=== PATIENT | female | born 1940 | race Caucasian/White ===

== ENCOUNTER → 2017-01-12 16:59 | Outpatient (CLI) | payer MEDICARE, BC | END | disposition home or self-care (01) | LOC: D.MAMMO 14:30 | DX: Z85.3 Personal history of malignant neoplasm of breast (principal); Z12.31 Encounter for screening mammogram for malignant neoplasm of breast ==

== ENCOUNTER → 2018-02-04 16:51 | Outpatient (CLI) | payer MEDICARE, BC | END | disposition home or self-care (01) | LOC: D.MAMMO 13:30 | DX: Z12.31 Encounter for screening mammogram for malignant neoplasm of breast (principal) ==

== ENCOUNTER 2018-02-19 08:00 | Outpatient (CLI) | payer MEDICARE, BC | END 2018-02-19 09:00 | disposition home or self-care (01) | LOC: D.MAMMO 08:00 | DX: R92.8 Other abnormal and inconclusive findings on diagnostic imaging of breast (principal) ==

== ENCOUNTER 2019-01-20 06:59 | Day surgery (SDC) | payer MEDICARE, BC ==
[~2019-01-20] VITALS: Ht 165.1 cm; Wt 78.2 kg
[2019-01-20 07:46] LABS: BASOPHILS 0.7 % (0-2); HEMATOCRIT 42.2 % (36.0-48.0); IMMATURE GRANULOCYTES 0.7 % (0-5); LYMPHOCYTES 26.1 % (15-50); MCH 32.6 pg (26.0-34.0); MCHC 33.2 g/dL (31.0-37.0); MCV 98.4 fL (80.0-100.0); MEAN PLATELET VOLUME 9.8 fL (7.4-10.4); MONOCYTES 9.2 % (2-11); NEUTROPHILS 58.3 % (40-80); PLATELET COUNT 277 10x3/uL (130-400); RBC 4.29 10x6/uL (4.00-5.40); RDW 14.1 % (11.5-14.5); WBC 7.6 10x3/uL (4.8-10.8)
[2019-01-20 07:54] VITALS: Ht 165.1 cm; Wt 78.2 kg
[2019-01-20] MEDS ORDERED: PEPCID AC20 MG PO (08:01)
[2019-01-20] MEDS ORDERED: ESTRACE 0.0142.5 GM VG (08:02)
[2019-01-20] MEDS ORDERED: METOPROLOL TART50 MG PO (08:02)
[2019-01-20 08:03] LABS: ANION GAP 10.2 mmol/L (8-16); CALCIUM 8.9 mg/dL (8.5-10.1); CARBON DIOXIDE 30.8 mmol/L (21.0-32.0); CREATININE - SERUM 0.8 mg/dL (0.6-1.3)
[2019-01-20] MEDS ORDERED: COZAAR50 MG PO (08:03)
[2019-01-20] MEDS ORDERED: NORVASC5 MG PO (08:03)
[2019-01-20] MEDS ORDERED: OMEPRAZOLE20 M1 PO (08:04)
[2019-01-20] MEDS ORDERED: TOVIAZ4 MG PO (08:07)
[2019-01-20] MEDS ORDERED: VITAMIN D5000 UNIT PO (08:08)
[2019-01-20] MEDS ORDERED: D-MANNOSE PO (08:08)
[2019-01-20] MEDS ORDERED: KRILL OIL 1,001 EAC1 PO (08:09)
[2019-01-20] MEDS ORDERED: MERIBIN5 MG PO (08:10)
[2019-01-20] MEDS ORDERED: MULTI-DAY VITAM1 TAB PO (08:10)
--- NOTE | 2019-01-20 11:45 | NUR ---
[id number]: ESOPHAGEAL MANOMETRY PERFORMED.
--- NOTE | 2019-01-21 11:36 | OP ---
PATIENT NAME: LESLY SANTOS MEDICAL RECORD: [id number] :41 LOCATION:D.OPS ADMISSION DATE: SURGEON: SERGE PERRY MD DATE OF OPERATION: 01/20/2019 PREOPERATIVE DIAGNOSES: 1. Gastroesophageal reflux disease. 2. Hiatal hernia. 3. Diabetes mellitus. 4. Hypertension. 5. Hypercholesterolemia. POSTOPERATIVE DIAGNOSES: 1. Gastroesophageal reflux disease. 2. Hiatal hernia. 3. Diabetes mellitus. 4. Hypertension. 5. Hypercholesterolemia. PROCEDURE: EGD with biopsy and manometry catheter placement. SURGEON: Serge Perry MD REPORT OF PROCEDURE: An Olympus endoscope was advanced through the mouth and esophagus. As we passed through the GE junction to see, this was at 34 cm from the teeth. Just distal to this, we can see the diaphragm pinch in the top portion of the stomach consistent with a hiatal hernia. The diaphragm was at about 39 cm from the teeth. We were able to pass through this and into the small bowel. The small bowel appeared to be normal with no sign of any inflammatory changes. As we pulled back, a biopsy was taken in the antrum of the stomach. The biopsy was sent off for permanent specimen. As we did retroflex views, we could see the moderate size hiatal hernia and near this there was about a 0.5-1 cm pedunculated mass in the fundus to the body of the stomach. A hot snare was used to transect this and a grasper was used to obtain the specimen. As we pulled back further, we inspected the GE junction and there was noted to be some ulcerations linearly with no signs of any Quinones's esophagus. A biopsy was taken at the edge of these linear ulcerations. At this point, the scope was removed. An esophageal manometry catheter was then inserted through the left naris and advanced with ease. The endoscope was advanced back down through the mouth and esophagus and we could see that this tube was placed down into the gastric lumen past the diaphragmatic hiatus. At this point, the scope was removed and the manometry catheter was left in position for postoperative esophageal manometry. COMPLICATIONS: None. CONDITION: Stable. ANESTHESIA: TIVA. BLOOD LOSS: Minimal. TRANSINT:[id number] Voice Confirmation ID: [id number] DOCUMENT ID: [id number] OPERATIVE REPORT [id number] LESLY SANTOS ESRGE PERRY MD at 1136 CC: [place] CRYSTAL [id number] DICTATION DATE: 01/20/19 1121 DRYING RACK CHANGER: 01/20/19 1138 [facility] 01/20/19 [id number] [place] [address]
== END 2019-01-20 12:20 | disposition home or self-care (01) ==
LOC: D.OPS 06:59
PROVIDERS: ATTEND Surgery
DX: K21.9 Gastro-esophageal reflux disease without esophagitis (principal); K44.9 Diaphragmatic hernia without obstruction or gangrene; E11.9 Type 2 diabetes mellitus without complications; I10 Essential (primary) hypertension; E78.00 Pure hypercholesterolemia, unspecified

== ENCOUNTER 2019-02-10 08:50 | Day surgery (SDC) | payer MEDICARE, BC ==
[2019-02-08 12:50] LABS: BASOPHILS 0.5 % (0-2); EOSINOPHILS 2.6 % (0-7); HEMATOCRIT 43.3 % (36.0-48.0); HEMOGLOBIN 14.5 g/dL (12-16); IMMATURE GRANULOCYTES 0.4 % (0-5); MCH 32.7 pg (26.0-34.0); MCHC 33.5 g/dL (31.0-37.0); MCV 97.7 fL (80.0-100.0); NEUTROPHILS 64.5 % (40-80); PLATELET COUNT 275 10x3/uL (130-400); RBC 4.43 10x6/uL (4.00-5.40); RDW 13.7 % (11.5-14.5); WBC 8.4 10x3/uL (4.8-10.8)
[2019-02-08 12:55] LABS: INR 1.06 (0.85-1.17); PROTIME 13.3 SECONDS (11.6-15.0)
[2019-02-08 13:06] LABS: ANION GAP 12.8 mmol/L (8-16); CALCIUM 9.5 mg/dL (8.5-10.1); CARBON DIOXIDE 28.3 mmol/L (21.0-32.0); CREATININE - SERUM 0.8 mg/dL (0.6-1.3); POTASSIUM - SERUM 4.1 mmol/L (3.5-5.1)
[~2019-02-10] VITALS: Ht 167.6 cm; Wt 78.2 kg
[~2019-02-10 08:50] MED LIST: COZAAR50 MG PO; D-MANNOSE PO; ESTRACE 0.0142.5 GM VG; KRILL OIL 1,001 EAC1 PO; MERIBIN5 MG PO; METOPROLOL TART50 MG PO; MULTI-DAY VITAM1 TAB PO; NORVASC5 MG PO; OMEPRAZOLE20 M1 PO; PEPCID AC20 MG PO; TOVIAZ4 MG PO; VITAMIN D5000 UNIT PO
[2019-02-10 10:33] VITALS: BP 143/61; BMI 28.6
--- NOTE | 2019-02-10 12:20 | NUR ---
PT PLACED ON GEL PAD WITH SLING UNDER BUTTOCKS.
[2019-02-10 14:04] VITALS: BP 129/59
--- NOTE | 2019-02-10 14:06 | NUR ---
PT ARRIVED FROM SURGERY VIA BED. RR EVEN AND UNLABORED. PT IS SLEEPING BUT EASIL AROUSED. DENIES NEEDS OR PAIN AT THIS TIME. FAMILY @ BEDSIDE. IV NOTED TO LEFT HAND. 4L NC. VSS AT THIS TIME. WILL CONTINUE TO MONITOR.
[2019-02-10 15:06] VITALS: BP 142/76; Ht 167.6 cm; Wt 78.2 kg
--- NOTE | 2019-02-10 19:15 | NUR ---
LYING IN BED WITH EYES OPEN, TELEVISION ON, SHOWS NO S/S OF ANY ACUTE DISTRESS. DENIES ANY PAIN AT THIS TIME. WILL NOTE ANY CHANGE.
[2019-02-10 21:07] VITALS: BP 150/79
[2019-02-11 00:13] VITALS: BP 158/70
--- NOTE | 2019-02-11 01:15 | NUR ---
I have reviewed this patient and I concur with the Shift Assessment completed by the Licensed Practical Nurse today this shift.
--- NOTE | 2019-02-11 04:51 | NUR ---
RESTED WELL THIS SHIFT, DID NOT VOICE ANY FURTHER COMPLAINTS OF PAIN OR DISTRESS AFTER ADMINISTRATION OF MEDICAL SOCIOLOGIST. WILL CONTINUE TO OBSERVE.
[2019-02-11 05:14] VITALS: BP 158/58
[2019-02-11 07:08] LABS: BASOPHILS 0.1 % (0-2); EOSINOPHILS 0.1 % (0-7); HEMATOCRIT 41.9 % (36.0-48.0); HEMOGLOBIN 13.8 g/dL (12-16); IMMATURE GRANULOCYTES 0.5 % (0-5); LYMPHOCYTES 7.7 % (15-50); MCH 32.5 pg (26.0-34.0); MCHC 32.9 g/dL (31.0-37.0); MCV 98.6 fL (80.0-100.0); MEAN PLATELET VOLUME 10.3 fL (7.4-10.4); MONOCYTES 8.5 % (2-11); NEUTROPHILS 83.1 % (40-80); PLATELET COUNT 269 10x3/uL (130-400); RBC 4.25 10x6/uL (4.00-5.40); RDW 14.3 % (11.5-14.5); WBC 13.1 10x3/uL (4.8-10.8)
[2019-02-11 07:10] LABS: CALC OSMOLALITY 271 mosm/kg (275-300); CALCIUM 8.5 mg/dL (8.5-10.1); CARBON DIOXIDE 21.2 mmol/L (21.0-32.0); CHLORIDE - SERUM 103 mmol/L (98-107); CREATININE - SERUM 0.6 mg/dL (0.6-1.3); GLUCOSE 131 mg/dL (74-106); POTASSIUM - SERUM 4.4 mmol/L (3.5-5.1); SODIUM 135 mmol/L (136-145); UREA NITROGEN 12 mg/dL (7-18); eGFR NON AFRICAN AMERICAN > 90 mL/min (90-120)
--- NOTE | 2019-02-11 07:30 | NUR ---
REC'D IN BED AWAKE AND ALERT. RESP EVEN AND UNLABORED WITH NO DISTRESS NOTED. CAN EXPRESS NEEDSA ND WANTS. NO C/O NOTED OR VOICED AT THIS TIME. C/L IN REACH AT BEDSIDE.
[2019-02-11 08:46] VITALS: BP 160/82
[2019-02-11] MEDS ORDERED: HYDROCODON-ACE1 EA10 PO (12:11)
[2019-02-11] MEDS ORDERED: REGLAN5 MG PO (12:12)
[2019-02-11 14:03] VITALS: BP 143/70
--- NOTE | 2019-02-11 14:44 | NUR ---
PT C/O HEADACHE RATING 5/10 MEDICATED WITH NORCO. PER ORDERS.
--- NOTE | 2019-02-11 15:44 | NUR ---
DC HOME AT THIS TIME VOICE UNDERSTANDING OF DC ORDERS. IV DC WITH TIP INTACT. AND DAUGHTER AT BEDSIDE ALSO VOICE UNDERSTANDING. C/L IN REACH AT BEDSIDE.
--- NOTE | 2019-02-15 13:36 | OP ---
PATIENT NAME: LESLY SANTOS MEDICAL RECORD: [id number] :41 LOCATION:D.OPS ADMISSION DATE: SURGEON: KENNY PERRY MD DATE OF OPERATION: 02/10/2019 PREOPERATIVE DIAGNOSES: 1. Gastroesophageal reflux disease. 2. Hiatal hernia. 3. Diabetes mellitus. 4. Hypertension. 5. Hypercholesterolemia. 6. Esophageal dysmotility. POSTOPERATIVE DIAGNOSES: 1. Gastroesophageal reflux disease. 2. Hiatal hernia. 3. Diabetes mellitus. 4. Hypertension. 5. Hypercholesterolemia. 6. Esophageal dysmotility. PROCEDURE: Laparoscopic hiatal hernia repair with Toupet fundoplication. SURGEON: Kenny Perry MD REPORT OF PROCEDURE: The patient's abdomen was prepped and draped in sterile fashion. A Veress needle was inserted in the left upper quadrant and the abdomen was insufflated. An 11-mm Visiport trocar was inserted in the midline just above the umbilicus. We could see the Veress needle and there was no sign of any injury to bowel or surrounding structures. An 11-mm trocar was inserted in the left subcostal region, a 5-mm trocar was placed in the epigastrium, a 5-mm trocar was placed in the right lateral subcostal region, and a final 5-mm trocar was placed in the left lateral abdomen. We elevated the left lobe of the liver and held this up with a liver retractor. We could see the patient did have a hiatal hernia with a proximal 20% of the stomach up in the patient's thoracic cavity. We started by taking down the lesser omentum using Harmonic scalpel. We continued this dissection to the right side of the right rashad. We then scored the peritoneum and was able to take the hernia sac down up into the chest and release this as far anteriorly and posteriorly as possible. Once this was done, then we advanced to the greater curvature of the stomach and took down the short gastric using Harmonic scalpel over to the right side of the right rashad. We continued our dissection anteriorly and posteriorly and eventually we were able to get a 360-degree inspection of the patient's esophagus. The esophagus rested fairly easily in the patient's abdominal cavity revealing the distal 1-2 cm. We then reapproximated the esophageal hiatus using interrupted 0 Polydeks times 3. We then performed a 270-degree posterior wrap of the fundus of the stomach around the distal esophagus. This was done utilizing 6 interrupted 0 Polydeks. At the conclusion of the case, this appeared to be a good floppy wrap with no tension. The liver retractor was then removed. We irrigated out the abdomen with saline and assured there was no sign of any bleeding or bile leakage. The fascia sites were closed with interrupted 0 Vicryls using a Ganga-Conor suture passer device. At this point, the ports and insufflation were then removed. The wounds were infused with a total of 10 mL of 0.25% Marcaine with epinephrine and then closed with running subcutaneous 5-0 Monocryl. The wounds were then dressed appropriately. OPERATIVE REPORT [id number] LESLY SANTOS COMPLICATIONS: None. CONDITION: Stable. ANESTHESIA: General endotracheal and local. BLOOD LOSS: Minimal. TRANSINT:[id number] Voice Confirmation ID: [id number] DOCUMENT ID: [id number] cc: YI Davidson CHRISTIAN MD at 1336 CC: [place] CRYSTAL [id number] DICTATION DATE: 02/10/19 1338 STOCK UNLOADER: 02/10/19 1516 [facility] 02/11/19 [id number] [place] [address]
--- NOTE | 2019-02-15 13:36 | OP ---
PATIENT NAME: LESLY SANTOS MEDICAL RECORD: [id number] :41 LOCATION:D.OPS ADMISSION DATE: SURGEON: KENNY PERRY MD DATE OF OPERATION: 02/11/2019 PREOPERATIVE DIAGNOSES: 1. Biliary dyskinesia. 2. Atrial fibrillation. 3. Chronic anticoagulant use. 4. Hypertension. 5. Chronic lymphocytic leukemia. 6. Hypothyroidism. 7. Diabetes mellitus. 8. Hyperlipidemia. POSTOPERATIVE DIAGNOSES: 1. Biliary dyskinesia. 2. Atrial fibrillation. 3. Chronic anticoagulant use. 4. Hypertension. 5. Chronic lymphocytic leukemia. 6. Hypothyroidism. 7. Diabetes mellitus. 8. Hyperlipidemia. PROCEDURE: Laparoscopic cholecystectomy. SURGEON: Kenny Perry MD REPORT OF PROCEDURE: The patient's abdomen was prepped and draped in sterile fashion. A cutdown was made in the midline just above the umbilicus. A 0 Vicryl was placed in the fascia bilaterally and the fascia was incised with 15-blade. I then bluntly entered the peritoneal cavity and placed a 12-mm Osmany port. Under direct visualization, a 5 mm trocar was placed in the epigastrium and 2 more 5-mm trocars were placed in the right subcostal region. The gallbladder was grasped and elevated. It was noted to be distended with some [id number] inflammatory changes. We ended up aspirating the gallbladder to remove some of the bilious content. This made the gallbladder more graspable. We dissected out the cystic artery and cystic duct and these were clipped proximally and distally and ligated in standard fashion. The gallbladder was then taken off the liver bed using electrocautery and placed into an Endo Catch bag. The right upper quadrant was then irrigated out and care taken to make sure there is no sign of any bleeding or bile leakage. Any bleeding that was found was treated with electrocautery. At this point, the ports and insufflation were then removed and the gallbladder was taken out through the umbilicus. The umbilical fascia was closed with interrupted 0 Vicryls times 3. The wounds were then irrigated out with normal saline and infused with 10 mL of 0.25% Marcaine with epinephrine. The skin incisions were closed with subcutaneous 5-0 Monocryl and dressed appropriately. COMPLICATIONS: None. CONDITION: Stable. ANESTHESIA: General endotracheal and local. OPERATIVE REPORT [id number] LESLY SANTOS BLOOD LOSS: Minimal. TRANSINT:[id number] Voice Confirmation ID: [id number] DOCUMENT ID: [id number] KENNY PERRY MD at 1336 CC: JENNIFER QUINTANILLA DO [id number] DICTATION DATE: 02/11/19 1030 BUSINESS APPLICATIONS SPECIALIST: 02/11/19 1101 [facility] 02/11/19 [id number] [place] [id number]
== END 2019-02-11 15:48 | disposition home or self-care (01) ==
LOC: D.OPS 08:50 → D.PAN 10:45 → D.OPS 11:00 → D.MS 13:46 → D.OPS 02-11 15:48
PROVIDERS: Anesthesiology; ATTEND Surgery
DX: K82.8 Other specified diseases of gallbladder (principal); I48.91 Unspecified atrial fibrillation; Z79.01 Long term (current) use of anticoagulants; I10 Essential (primary) hypertension; C91.10 Chronic lymphocytic leukemia of B-cell type not having achieved remission; E03.9 Hypothyroidism, unspecified; E11.9 Type 2 diabetes mellitus without complications; E78.5 Hyperlipidemia, unspecified; K21.9 Gastro-esophageal reflux disease without esophagitis; E78.00 Pure hypercholesterolemia, unspecified; K22.4 Dyskinesia of esophagus